=== PATIENT | female | born 1960 | race Caucasian/White ===

== ENCOUNTER 2020-08-05 09:08 | Outpatient (REF) | payer OTHER, SELFPAY ==
[2020-08-05 09:23] LABS: COVID-19 Test Negative (Negative)
== END 2020-08-05 09:09 | disposition home or self-care (01) ==
LOC: HO.EMPCOV 09:08
PROVIDERS: Visit Provider Internal Medicine
DX: Z20.822 Contact with and (suspected) exposure to COVID-19 (principal)
CPT/HCPCS: 36415; 87635; C9803

== ENCOUNTER 2021-03-05 12:19 | Outpatient (REF) | payer OTHER, SELFPAY ==
--- NOTE | ~2021-03-05 | MM_ITS ---
EXAMINATION: MM SCREENING DIGITAL BREAST TOMOSYNTHESIS, BILATERAL CLINICAL INFORMATION: Screening. Asymptomatic. The lifetime risk of breast cancer based on the Tyrer-Cuzick Model is 9%. COMPARISON: Mammography: 02/28/2020, 02/15/2019, 01/24/2018 TECHNIQUE: Digital breast tomosynthesis is performed in both the craniocaudal and mediolateral oblique views along with computer-aided detection (CAD). Synthesized 2D images are generated from the tomosynthesis. FINDINGS: The breasts are heterogeneously dense, which may obscure small masses (ACR BI-RADS breast composition Category c). There are scattered bilateral parenchymal asymmetries and shifting fibroglandular densities related to minor variation in positioning and compression. There is no developing density or interval mass or architectural abnormality. No abnormal calcifications. The axilla and skin contours are unremarkable. MM/MM tomosynthesis screening BI IMPRESSION: No significant changes from prior exams. ASSESSMENT: BI-RADS 2: Benign RECOMMENDATION: Routine annual mammography screening. This patient's information was entered into a reminder system with a target due date for their next mammogram.
== END 2021-03-05 12:20 | disposition home or self-care (01) ==
LOC: HO.MAMMO 12:19
PROVIDERS: PCP Nurse Practitioner Adult Health; Visit Provider Nurse Practitioner Adult Health
DX: Z12.31 Encounter for screening mammogram for malignant neoplasm of breast (principal)
CPT/HCPCS: 77063; 77067

== ENCOUNTER 2021-04-25 11:57 | Outpatient (REF) | payer OTHER, SELFPAY ==
--- NOTE | ~2021-04-25 | XR_ITS ---
EXAMINATION: XR RIBS, RIGHT CLINICAL INFORMATION: Trauma. COMPARISON: None TECHNIQUE: PA view the chest and 3 views of the right ribs. FINDINGS: Lungs are clear. No consolidation, pneumothorax, or pleural effusion. The cardiomediastinal silhouette and pulmonary vasculature are normal. Osseous structures are unremarkable. Ribs are intact. No fractures are identified. XR/XR ribs RT min 3V w [id number] IMPRESSION: No displaced fracture.
== END 2021-04-25 11:58 | disposition home or self-care (01) ==
LOC: HO.XRAY 11:57
PROVIDERS: PCP Nurse Practitioner Adult Health; Visit Provider Nurse Practitioner
DX: S29.9XXA Unspecified injury of thorax, initial encounter (principal); T81.31XA Disruption of external operation (surgical) wound, not elsewhere classified, initial encounter; Z98.890 Other specified postprocedural states
CPT/HCPCS: 71101

== ENCOUNTER 2022-03-30 12:10 | Outpatient (REF) | payer OTHER, SELFPAY ==
--- NOTE | ~2022-03-30 | MM_ITS ---
EXAMINATION: MM SCREENING DIGITAL BREAST TOMOSYNTHESIS, BILATERAL CLINICAL INFORMATION: Screening. Asymptomatic. The lifetime risk of breast cancer based on the Tyrer-Cuzick Model is 8%. COMPARISON: Mammography: 03/05/2021, 02/28/2020, 02/15/2019 TECHNIQUE: Digital breast tomosynthesis is performed in both the craniocaudal and mediolateral oblique views along with computer-aided detection (CAD). Synthesized 2D images are generated from the tomosynthesis. FINDINGS: There are scattered areas of fibroglandular density (ACR BI-RADS breast composition Category b). There are no significant masses, abnormal calcifications, or other abnormalities. Parenchymal pattern is similar to prior studies. There is no developing density or architectural abnormality. The axilla and skin contours are unremarkable. No significant changes. MM/MM tomosynthesis screening BI IMPRESSION: No mammographic evidence of malignancy. ASSESSMENT: BI-RADS 1: Negative RECOMMENDATION: Routine annual mammography screening. This patient's information was entered into a reminder system with a target due date for their next mammogram.
== END 2022-03-30 12:11 | disposition home or self-care (01) ==
LOC: HO.MAMMO 12:10
PROVIDERS: Visit Provider Nurse Practitioner Adult Health
DX: Z12.31 Encounter for screening mammogram for malignant neoplasm of breast (principal)
CPT/HCPCS: 77063; 77067

== ENCOUNTER 2024-12-14 07:02 | Outpatient (REF) | payer OTHER, SELFPAY ==
[2024-12-14 07:14] LABS: MANUAL DIFF FLAG NO
[2024-12-14 08:05] LABS: Basophils Percent Auto 0.4 % (0-2); Eosinophils Absolute Auto 0.1 X10*3/uL (0.0-0.4); Eosinophils Percent Auto 1.3 % (0-4); Hematocrit 39.6 % (37.0-47.0); Hemoglobin 13.1 g/dl (12.0-16.0); Imm Gran Abs Auto 0.01 X10*3/uL (0.00-0.03); Imm Gran Pct Auto 0.2 % (0.0-0.4); Lymphocytes Absolute Auto 2.3 X10*3/uL (1.2-4.9); Lymphocytes Percent Auto 44.1 % (20-40); Mean Corpuscular HGB Conc 33.1 g/dl (31.0-35.0); Mean Corpuscular Hemoglobin 31.2 pg (27.0-33.0); Mean Corpuscular Volume 94.3 fL (80.0-98.0); Monocytes Absolute Auto 0.4 X10*3/uL (0.1-1.2); Neutrophils Absolute Auto 2.5 x10*3/uL (2.0-8.3); Platelet Count 290 X10*3/uL (160-400); Red Cell Distribution Width 13.6 % (11.0-16.0); White Blood Count 5.3 X10*3/uL (4.8-10.8)
[2024-12-14 08:45] LABS: Alanine Aminotransferase 22 U/L (0-31); Albumin Level 4.3 g/dL (3.5-5.0); Alkaline Phosphatase 88 U/L (39-117); Anion Gap 8 (12-20); Aspartate Amino Transferase 26 U/L (5-31); Bilirubin Total 0.3 mg/dL (0.0-1.0); Blood Urea Nitrogen 15 mg/dL (9-16); Calcium 9.3 mg/dL (8.4-10.2); Carbon Dioxide 28 mmol/L (22-29); Chloride 110 mmol/L (96-108); Cholesterol 210 mg/dL (<200); Estimated Glomerular Filt Rate > 60; Glucose Random 108 mg/dL (60-115); HDL Cholesterol 75 mg/dL (>40); LDL Cholesterol Calculated 108 mg/dL (<100); Potassium 4.4 mmol/L (3.3-5.1); Sodium 142 mmol/L (135-145); Triglycerides 136 mg/dL (<150)
[2024-12-14 08:47] LABS: Erythrocyte Sedimentation Rate 13 MM/HR (0-20)
[2024-12-14 09:01] LABS: TSH reflex Free T4 4.86 uIU/mL (0.32-4.0)
[2024-12-14 09:50] LABS: Free T4 (Free Thyroxine) 1.03 ng/dL (0.71-1.85)
[2024-12-15 08:53] LABS: CRP High Sensitivity 3.4 mg/L
[2024-12-19 15:44] LABS: Anti Nuclear Antibody Pattern Nuclear, Homogeneous; Anti Nuclear Antibody Screen POSITIVE (NEGATIVE)
== END 2024-12-14 07:03 | disposition home or self-care (01) ==
LOC: HO.LAB 07:02
PROVIDERS: Visit Provider Nurse Practitioner
DX: E66.9 Obesity, unspecified (principal); E03.9 Hypothyroidism, unspecified; R53.83 Other fatigue; M79.10 Myalgia, unspecified site
CPT/HCPCS: 36415; 80053; 80061; 84439; 84443; 85025; 85652; 86038; 86039; 86141

== ENCOUNTER 2025-03-19 13:16 | Outpatient (AMB) | payer OTHER, SELFPAY ==
--- NOTE | 2025-03-19 13:22 | A.OFFPC_ITS ---
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 Required: No Allergies PLASTIC TAPE Allergy (Intermediate, Uncoded 03/19/25 13:44) RASH adhesive tape Allergy (Unknown, Uncoded 03/19/25 13:44) rash Medication List - Last Reconciled 03/19/25 by Kecia Hancock, SECURITY SYSTEMS INSTALLER- eletriptan 40 mg PO ONCE PRN fluconazole 200 mg PO DAILY 3 days gabapentin 2,400 mg (3 x 800 mg) PO BEDTIME ipratropium bromide 2 sprays intranasal TID-QID PRN levothyroxine 150 mcg PO DAILY 90 days melatonin 40 mg PO DAILY metoclopramide HCl 5 mg PO BID PRN mirtazapine 30 mg PO BEDTIME venlafaxine ER 150 mg PO DAILY venlafaxine ER 75 mg PO DAILY Tobacco use date assessed: 03/19/25 Dental Screening Dental Screen Date: 03/19/25 Did you have a dental visit in the last 12 months?: Yes Did you have a dental problem in the last 6 months where you did not have access to dental care?: No Was dental information given to patient?: Patient has dentist HPI HPI Comments History of Present Illness Details 64 y/o F with elevated CRP , hypothyroid , + SANTOSH, migraines, fhx of stroke (Mom), obesity. fhx colon cancer (dad) Social: , works at [employer] [facility] Family history: stroke, schizophrenia in mother, colorectal cancer, MDD, etoh and suicide in father, hypertension, and Alzheimer's in aunt. Health Maintenance: Colon has had one done, unsure when she will fu with [facility] GI Mammo 2021, ordered today DEXA ordered today PAP overdue. Tdap 2023 Specialists: None History of Present Illness - The patient is a 64-year-old female pr esenting to est care for a CPE with thyroid dysfunction, depression, and weight issues. - Thyroid dysfunction managed with levot hyroxine, previously tested with TSH at 4.86. - Depression treated with venlafaxine an d mirtazapine, with accompanying insomnia. Uses Gabapentin - Weight gain post-COVID, difficulty in weight management despite active lifestyle due to caregiving duties. - Previous use of Wegovy for wt loss cau sed low blood sugar levels & nausea. - Elevated SANTOSH, CRP and high cholesterol previously noted on labs . 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 - Struggles with maintaining weight post -COVID due to increased stress and reduced time for personal health management. - Described a reduction in activity due to caregiving and managing household responsibilities. - Meticulous about managing mother's car e post-stroke; actively involved in ensuring mother remains on appropriate medication. - Described a history of [employer] pa rticipation; current lifestyle involves high stress and multiple responsibilities. - Alcohol consumption sporadic, typicall y one glass of wine per night briefly, then periods of abstinence. Health Maintenance - Regular colonoscopy screenings advised due to family history of colorectal cancer. - Pap smear due; will refer to AVIATION ELECTRONICS TECHNICIAN. - Bone density and mammogram scheduled; advised to schedule on same day. - Discussed lifestyle modifications for weight management and recommended medication adjustments due to lifestyle. Review of Systems - General: Denies acute distress; report s stress in managing household due to caregiving responsibilities. - Musculoskeletal: Reports osteoarthriti s, particularly affecting knees. Does not have sx of polyarthralgia, offered and declined Rheum referral for SANTOSH & CRP - Neurologic: Reports depression and his tory of migraine headaches. - Endocrine: Reports thyroid dysfunction . - Psychiatric: Reports depressive sympto ms, history of insomnia, and uses gabapentin for management. Reports depression, managed with venlafaxine and mirtazapine. - Skin: Recent removal of a couple of sp ots by Dr. Rosa. Physical Exam General: Well developed, well nourished, in no acute distress. Appears stated age. Head: Normocephalic, atraumatic. Eyes: Pupils are equal, round and reactive to light and accommodation. Conjunctivae are clear. Vision grossly normal. Ears: TMs clear AU, EACS WNL Nose: Patent, without discharge. Neck: Supple, no adenopathy or thyromegaly. Breast: Edu on SBE Lungs: Clear to auscultation bilaterally. No rales, rhonchi or wheeze noted. Good air flow in all zheng. Heart: Regular rate and rhythm. No murmurs, click, rubs or gallops are noted. Abdomen: Bowel sounds present in all quadrants. The abdomen is soft, nontender, with no masses or organomegaly noted. No hernias are noted. : Deferred. Reviewed recommendations for routine FUDGER Pulses: Peripheral pulses are equal and palpable bilaterally. Extremities: No clubbing, cyanosis nor edema is noted. Some varicosities noted Neurologic: Gait and station normal. Cranial Nerves 2-12 intact. Motor strength grossly symmetrical and intact. No sensory loss. Balance normal. Skin: No rashes, ulcers, or lesions noted. Turgor is good. Skin color is good. Hair and nails are without abnormalities. Psych: Normal eye contact, affect and mood appropriate, and normal interactions. Patient is alert and appropriate to context. Results labs 12/14/24 crp 3.4, TSH 4.86, SANTOSH+ 1:160 HOMOGENOUS NUCLEAR Discussion Notes During our visit, we discussed the management of the patient's thyroid dysfunction. We considered the addition of Wellbutrin due to its potential weight loss benefits, ensuring it doesn't adversely affect her mental health. We reviewed the significance of naltrexone as an adjunct for weight management given her limited success with Wegovy due to its hypoglycemic effects. We also went over her medication regimen. The patient is advised to monitor her cholesterol levels and revisit her thyroid levels. I emphasized the importance of maintaining regular screening for colorectal cancer due to her family's history, acknowledging her proactive approach to her health maintenance. We further explored her interest in lifestyle interventions but recognized her constraints due to caregiving duties. Patient was given time to ask questions. All questions were answered to their satisfaction. Assessment and Plan 1. Thyroid dysfunction - Continue levothyroxine; retest TSH. 2. Depression/Insomnia - Maintain current medication. Maintain gabapentin use 3. Obesity - Start Wellbutrin, add naltrexone . 4. Hyperlipidemia - Monitor lipids; discuss dietary adjust ments. 7. Health Maintenance - Order mammogram, bone density, and ref er to [facility]IATION ELECTRONICS TECHNICIAN for pap smear. - Regular colonoscopy encouraged. Patient Instructions - Continue taking your medications as di scussed while monitoring for any side effects. - Expect a call to schedule your mammogr am and bone density test. - Follow up on thyroid levels with blood work soon. - Consider balanced meals to manage chol esterol?follow low-fat dietary plans. - Monitor your mood, especially when sta rting new medications. - Please ensure colonoscopy appointments remain up to date. - Exercise if possible, aiming for moder ate activity that accommodates your arthritis. - RTO 12 weeks to review wt loss from n ew meds. Consent Patient was informed and verbally consented to the use of an ambient scribe for clinic note documentation during this visit. An additional 30 minutes was spent addressing the problem(s) noted at todays visit. This includes time spent before the visit reviewing the chart, time spent during the visit, and time spent after the visit on documentation reviewing laboratory results, diagnostic imaging, medications, performing a medically necessary evaluation, counseling on diagnoses, care coordination, ordering appropriate tests, ordering appropriate medications, review of tests performed by other providers, reporting test results with the patient, communication with other healthcare providers. [facility] Medical History (Updated 03/19/25 @ 15:57 by Kecia Hancock, [facility]) Arthritis Asthma Candidal stomatitis Chronic idiopathic constipation Dental infection Depression Thyroid disorder UTI (urinary tract infection) Surgical History (Updated 03/19/25 @ 13:38 by Cher Vargas MA) H/O lumpectomy H/O myringoplasty History of appendectomy History of lumpectomy of right breast Family History (Updated 03/19/25 @ 13:39 by Cher Vargas MA) Mother Mental health disorder HTN (hypertension) Clotting disorder Father Substance abuse HTN (hypertension) Social History (Updated 03/19/25 @ 13:30 by Cher Vargas MA) Household Members: Spouse Both parents involved: No Caregiver staying overnight: No Housing: House Are you a primary urgent care nurse practitioner to a significant other at home: No Do you presently have visiting nurse or other home services: No 75 years or older and lives alone: No Alcohol intake: current Alcohol intake frequency: a few times a month Patient Tobacco Use Status: Never used Tobacco e-Cigarette/Vaping Use: Never Used Second Hand Smoke Exposure: No Current occupational status: employed 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 1. Little interest or pleasure in doing things: not at all 2. Feeling down, depressed, or hopeless: not at all 3. Trouble falling or staying asleep, or sleeping too much: nearly every day 4. Feeling tired or having little energy: more than half the days 5. Poor appetite or overeating: several days 6. Feeling bad about yourself - or that you are a failure or have let yourself or your family down: not at all 7. Trouble concentrating on things, such as reading the newspaper or watching television: not at all 8. Moving or speaking so slowly that other people could have noticed. Or the opposite - being so fidgety or restless that you have been moving around a lot more than usual: not at all 9. Thoughts that you would be better off or of hurting yourself in some way: not at all Total score: 6 Depression Screening Interpretation: Positive Depression Screening Follow-up: Existing condition and In treatment Depression Screening Done: Yes 79822 - PHQ-9 Billing: Yes Source: Developed by Drs. Jack Rosado, Bety Ziegler, Tim Dos Santos and colleagues, with an educational dori from [employer]. Thrive Questionnaire Date Thrive assessed: 03/19/25 I am a: Patient What is your living situation today?: I have a steady place to live Within the past 12 months, did the food you bought not last and you didn't have the money to get more?: Never true Within the past 12 months, did you worry whether your food would run out before you got money to buy more?: Never true Do you have trouble paying for medicines?: No Do you have trouble getting transportation to medical appointments?: No Do you have trouble paying your heating and electricity bill?: No Do you have trouble taking care of your child, family member or friend?: Yes Do you have trouble with day-to-day activities such as bathing, preparing meals, shopping, managing finances, etc.?: No Are you currently unemployed and looking for a job?: No Are you interested in more education?: Yes Please select the resources that you would like help with: None Currently or been in a relationship where the following occur: No concerns reported THRIVE Score: 0 AUDIT C Alcohol Use Questionnaire (AUDIT-C) 1. How often do you have a drink containing alcohol?: Never 2. How many drinks containing alcohol do you have on a typical day when you are drinking?: 1 or 2 3. How often do you have six or more drinks on one occasion?: Less than monthly Total Score: 1 Score Reviewed/Action Taken: Yes TRACY-7 AMB Questionnaire TRACY-7 Date TRACY - 7 assessed: 03/19/25 Feeling nervous, anxious, or on edge: 1 = Several days Not being able to stop or control worryin = Not at all Worrying too much about different things: 0 = Not at all Trouble relaxin = More than half the days Being so restless that it is hard to sit still: 0 = Not at all Becoming easily annoyed or irritable: 1 = Several days Feeling afraid as if something awful might happen: 2 = More than half the days Total TRACY-7 score (0-4 normal; 5-9 mild; 10-14 moderate; 15-21 severe): 6 Source: Developed by Drs. Jack Rosado, Bety Ziegler, Tim Dos Santos and colleagues, with an educational dori from [employer]. TRACY-7 Assessment Billing TRACY-7 Assessment Tool: TRACY-7 Assessment 51220 Physical exam (Primary Care) Vital Signs: Last Vital Signs Temp 97.6 F 03/19/25 13:30 Pulse 104 H 03/19/25 13:30 Resp 12 03/19/25 13:30 BP 122/72 03/19/25 13:30 Pulse Ox 97 03/19/25 13:30 Oxygen Delivery Method Room Air 03/19/25 13:30 BMI result Body Mass Index 38.6 BMI Assessment/Plan discussion: High BMI High, discussed plan: lifestyle Tobacco/Smoking Status: Tobacco use Status Tobacco use date assessed 03/19/25 03/19/25 13:26 Patient Tobacco Use Status Never used Tobacco 03/19/25 13:30 e-Cigarette/Vaping Use Never Used 03/19/25 13:30 PHQ-9: PHQ-9 Score PHQ-9: Total score 6 03/19/25 13:48 Depression Screening Interpretation: Positive Depression Screening Follow-up: Existing condition and In treatment Thrive Assessment: Date of Thrive Assessment Date Thrive assessed 03/19/25 03/19/25 13:39 Currently or been in a relationship where the following occur: No concerns reported Office Procedures Office Procedure Misc Details: G0449 15 MINUTE OBESITY EDUCATION 15 minutes spent Discussing different forms of medications to help with weight loss. Discouraged the use of GLP-1s due to the need to use lifelong, weight ga in after discontinuation, cost and cancer risk. Educated about the use of Wellbutrin which can be used in patients without a seizure history. This medication works by blocking out the reward center related to mindless eating. It also has a mild stimulating effect. The side effect profile includes mild anxiety as well as a slight dizzy sensation. Another medication used is metformin, this is a diabetic medication. This medication has GI side effects. But can be very beneficial in aiding with weight loss in patients without diabetes. Topiramate was also discussed. This is a seizure medication with side effect profile that includes need to monitor LFTs as well as blood counts. One of the side effects is weight loss. Another medication, Phentermine is a stimulant/controlled substance. This is an anorexient that is used short-term medication used. =. Finally the use of a medication called Contrave, which is Wellbutrin + naltrexone can be used. The brand name is usually not cover therefore would have to prescribe the 2 medications individually. This medication works just as the Wellbutrin; naltrexone aides in further blocking of the reward center to aide in wt loss. After discussion of the above, the patient wishes to proceed with Wellbutrin and Naltrexone. 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 Hypothyroidism type: due to Jadyn's thyroiditis Elevated C-reactive protein (CRP) R79.82 Menopause Z78.0 Mild episode of recurrent major depressive disorder F33.0 Major depression episode severity: mild Psychophysiological insomnia F51.04 Insomnia type: psychophysiologic Obesity (BMI 30-39.9) E66.9 Family history of colon cancer Z80.0 Family history of schizophrenia Z81.8 Family history of suicide Z81.8 Patient's father is Z84.89 CPT Codes Office Procedure - Office Procedure Billing Code: AMB Procedure Billing Code ([id number]) Additional Codes TRACY-7 Assessment Billing - TRACY-7 Assessment Tool: TRACY-7 Assessment 91188 ([id number]) PHQ-9 - 40050 - PHQ-9 Billing: Yes ([id number]) Assessment & Plan Assessment & Plan (1) Encounter for general adult medical examination without abnormal findings: Onset Date: ~03/19/25 Code(s): Z00.00 - Encounter for general adult medical examination without abnormal findings Category: Medical (2) Hypothyroid: Code(s): E03.9 - Hypothyroidism, unspecified Category: Medical Qualifiers: Hypothyroidism type: due to Jadyn's thyroiditis Qualified Code(s): E06.3 - Autoimmune thyroiditis (3) Elevated C-reactive protein (CRP): Code(s): R79.82 - Elevated C-reactive protein (CRP) Category: Medical (4) Menopause: Code(s): Z78.0 - Asymptomatic menopausal state Category: Medical (5) MDD (major depressive disorder), recurrent episode: Code(s): F33.9 - Major depressive disorder, recurrent, unspecified Category: Medical Qualifiers: Major depression episode severity: mild Qualified Code(s): F33.0 - Major depressive disorder, recurrent, mild (6) Insomnia disorder: Code(s): G47.00 - Insomnia, unspecified Category: Medical Qualifiers: Insomnia type: psychophysiologic Qualified Code(s): F51.04 - Psychophysiologic insomnia (7) Obesity (BMI 30-39.9): Code(s): E66.9 - Obesity, unspecified Category: Medical (8) Family history of colon cancer: Comment: DAD Code(s): Z80.0 - Family history of malignant neoplasm of digestive organs Category: Medical (9) Family history of schizophrenia: Comment: MOM Code(s): Z81.8 - Family history of other mental and behavioral disorders Category: Medical (10) Family history of suicide: Comment: DAD Code(s): Z81.8 - Family history of other mental and behavioral disorders Category: Medical (11) Patient's father is : Code(s): Z84.89 - Family history of other specified conditions Category: Medical Plan . Orders: Orders MM tomosynthesis screening BI Today Z12.31 - Encounter for screening mammogram for malignant neoplasm of breast XR DEXA axial skeleton Today Z13.820 - Encounter for screening for osteoporosis, Z78.0 - Asymptomatic menopausal state TSH reflex Free T4 Today E03.9 - Hypothyroidism, unspecified CRP High Sensitivity Today R79.82 - Elevated C-reactive protein (CRP) Referrals [facility]IATION ELECTRONICS TECHNICIAN Referral Z12.4 - Encounter for screening for malignant neoplasm of cervix Medications: New bupropion HCl SR (Wellbutrin SR) 150 mg PO BID 180 tabs 0RF naltrexone 25 mg (1/2 x 50 mg) PO BID 90 tabs 0RF Discontinued metoclopramide HCl Discontinued Reason: Patient Completed Course 5 mg PO BID PRN 60 tabs 3RF for nausea/vomiting fluconazole Discontinued Reason: Patient Completed Course 200 mg PO DAILY 3 days 3 tabs 0RF Patient Instructions: Walk-In Care (Urgent Care): We Make it Easy Walk-in for urgent medical issues such as: ? Seasonal Allergies ? Insect Bites ? Cough ? Diarrhea ? Acute Asthma Attacks ? Back, Knee or Joint Pain ? Ear Infection ? Fever without a Rash ? Headaches ? Nausea ? [place] [facility], Rash or Skin Irritation ? Sore Throat ? Sports Physicals ? Vomiting Most insurances are accepted. Patients do not need to be part of the [facility] to seek care at the walk-in clinic. Locations [facility] [place] , [place] [address] ? [phone] [facility] Walk-In Care in [place] provides services to ages 18 and over. Open Wednesday-Wednesday: 7 a.m. to 5 p.m. and Wednesday: 9 a.m. to 3 p.m.* *Hours may vary due to staffing availability. To confirm Walk-In Care hours in [place], please call [phone]. [address] [place] [address] ? [phone] [facility] Walk-In Care in [place] provides services to ages 12 and over. Open Wednesday-Wednesday: 8 a.m. to 5 p.m. Hours may vary due to staffing availability. To confirm Walk-In Care hours in [place], please call [phone]. LABORATORY SERVICES: [facility] Lab ? Primary Location [address] [place] [address] Wednesday through Wednesday 6:00 AM ? 5:00 PM Wednesday 7:00 AM ? 11:00 AM* [phone] The [facility] Lab is centrally located near the front entrance of the [facility] for easy outpatient access. Convenient parking is provided for outpatients. *Hours may vary due to staffing availability. To confirm Laboratory hours for any location, please call [phone]. Offsite Location For your convenience, we offer offsite laboratory draw stations at the following locations: [address] [place] [address] ? [facility] [address], [address] Wednesday through Wednesday 7:30 AM ? 1:00 PM* [phone] *Hours may vary due to staffing availability. To confirm Laboratory hours for any location, please call [phone]. [place] ? [address] Wednesday through Wednesday 6:00 AM ? 3:30 PM* Wednesday 6:30 AM ? 3 PM* [phone] *Hours may vary due to staffing availability. To confirm Laboratory hours for any location, please call [phone] [place] [address] Wednesday through Wednesday 7:30 AM ? 4:00 PM* [phone] *Hours may vary due to staffing availability. To confirm Laboratory hours for any location, please call [phone] [place] [address] Wednesday through 9:00 AM ? 4:00 PM* *Hours may vary due to staffing availability. To confirm Laboratory hours for any location, please call [phone]. Appointments are not necessary. Walk-ins are welcome. Like all the departments throughout the [facility], our Lab undergoes frequent reviews to ensure the quality and accuracy of test results, and our staff takes special pride in its status as a nationally accredited facility. Patient Portal: [facility] ONE PATIENT. ONE RECORD. BETTER CARE. [facility] has a fully integrated, cutting- edge mobile electronic health information system that has revolutionized the way we care for our patients and manage our organization. This system improves communication and coordination enabling us to provide safe, higher-quality care, and an overall positive experience for staff and patients. Our first priority, as always, is to deliver the highest quality care possible. The system is running in the background supporting that priority. This portal is for all [facility] services and practices. If you are experiencing any technical difficulties with enrolling or logging into the Patient Portal please complete the [facility] Patient Portal Technical Support Form. [facility] now offers a new secure on-line interactive tool for patients to review their health information ? ?Patient Portal. This interactive web portal will enable patients and their families to take an active role in their care by providing easy, secure access to their health information via the internet. The Patient Portal provides patients with instant access to their health information, including laboratory results, medications, allergies, demographic information, visit history, and more. In addition to managing their own care, parents and health care proxies with authorized consent will appreciate the ability to access the records of those individuals for whom they provide care. Please note: if you wish to gain access (Proxy) to another patient?s portal, you will be required to come to the Medical Records Department in person at [facility]. Both the patient giving proxy access and the proxy will need to provide photo identification and complete the appropriate authorization. The Patient Portal also allows track their appointments online. The [facility] Patient Portal also saves patients time by allowing them to submit updates to their demographic and contact information prior to their visits. Portal email notifications will also alert patients to any new activity on their portal, such as test results and new appointments. In order to initially enroll in the [facility] Patient Portal, you will need to enter some required information including the following: * your [facility] Medical Record number * your personal home email address * name * date of Please note: In order to enroll in the [facility] Patient Portal, we need to have your email address on file in your electronic medical record. ?The email address needs to be specific for one person (yourself) in order for your Portal enrollment to be successful. ?You can update your email address in person with our Registration staff when you are registering for a hospital visit. ?Otherwise, you will need to come to the Health Information Management (Medical Records) Department at [facility]. ?We are open from Wednesday ? Wednesday from 7:30 a.m. ? 4:30 p.m. ?You will be required to present a photo id. Once you have successfully enrolled in the Patient Portal, you will receive a one-time user id and password for the Portal, sent to your email address. ?This will allow you to log into the Patient Portal within 99 hrs and reset your own logon id and password, and define personal security questions. ?Once your perma nent login and password have been set, you can log into the [facility] Patient Portal at any time via the blue button above or from the Portal Logon button on any page of the [facility] website. [facility] and [facility] encourage all of our patients to enroll in Patient Portal as it presents a valuable opportunity for patients and their families to actively participate in their care and stay healthy Welcome to [facility]. ?We look forward to working with you. Health screenings for women You should visit your health care provider from time to time, even if you are healthy. The purpose of these visits is to: Screen for medical issues Assess your risk for future medical problems Encourage a healthy lifestyle Update vaccinations and other preventive care services Help you get to know your provider in case of an illness Information Even if you feel fine, you should still see your provider for regular checkups. These visits can help you avoid problems in the future. For example, the only way to find out if you have high blood pressure is to have it checked regularly. High blood sugar and high cholesterol levels also may not have any symptoms in the early stages. A simple blood test can check for these conditions. There are specific times when you should see your provider or receive specific health screenings. The [place] Preventive Services Task Force publishes a list of recommended screenings. Below are screening guidelines for women ages 18 to 39. BLOOD PRESSURE SCREENING Your blood pressure should be checked at least once every 3 to 5 years if: Your blood pressure is in the normal range (top number less than 120 mm Hg and bottom number less than 80 mm Hg) You don't have risk factors for high blood pressure Ask your provider if you need your blood pressure checked more often if: The top number is 120 to 129 mm Hg or the bottom number is 70 to 79 mm Hg You have diabetes, heart disease, kidney problems, are overweight, or have certain other health conditions You have a first-degree relative with high blood pressure You are Black You had high blood pressure during a If the top number is 130 mm Hg or greater or the bottom number is 80 mm Hg or greater, this is considered stage 1 hypertension. Schedule an appointment with your provider to learn how you can reduce your blood pressure. Watch for blood pressure screenings in your area. Ask your provider if you can stop in to have your blood pressure checked. BREAST CANCER SCREENING Experts do not agree about the benefits of breast self-exams in finding breast cancer or saving lives. Talk to your provider about what is best for you. A screening mammogram is not recommended for most women under age 40. Your provider may discuss and recommend mammograms, MRI scans, or ultrasounds if you have an increased risk for breast cancer, such as: A mother or sister who had breast cancer at a young age (most often starting screening earlier than the age the close relative was diagnosed) You carry a high-risk genetic marker CERVICAL CANCER SCREENING Cervical cancer screening should start at age 21 years unless your provider advises otherwise. After the first test: Women ages 21 through 29 should have a Pap test every 3 years. Exoprts do not agree on whether HPV testing is recommended for this age group. Women ages 30 through 65 should be screened with either a Pap test every 3 years or the HPV test every 5 years or both tests every 5 years (called cotesting ). Women who have been treated for precancer (cervical dysplasia) should continue to have Pap tests for 20 years after treatment or until age 65, whichever is longer. If you have had your uterus and cervix removed (total hysterectomy), and you have not been diagnosed with cervical cancer or precancer (high grade cervical neoplasia), you do not need cervical cancer screening. CHOLESTEROL SCREENING Cholesterol screening should begin at: Age 45 for women with no known risk factors for coronary heart disease Age 20 for women with known risk factors for coronary heart disease Repeat cholesterol screening should take place: Every 5 years for women with normal cholesterol levels More often if changes occur in lifestyle (including weight gain and diet) More often if you have diabetes, heart disease, kidney problems, or certain other conditions DIABETES SCREENING You should be screened for diabetes starting at age 35 and then repeated every 3 years if you have no risk factors for diabetes. Screening may need to start earlier and be repeated more often if you have other risk factors for diabetes, such as: You have a first degree relative with diabetes. You are overweight or have obesity. You have high blood pressure, prediabetes, or a history of heart disease. Screening for diabetes should be done if you are planning to become and you are overweight and have other risk factors such as high blood pressure. DENTAL EXAM Go to the dentist once or twice every year for an exam and cleaning. Your dentist will evaluate if you need more frequent visits. EYE EXAM Have an eye exam every 5 to 10 years before age 40. If you have vision problems, have an eye exam every 2 years or more often if recommended by your provider. You should have an eye exam that includes an examination of your retina (back of your eye) at least every year if you have diabetes. IMMUNIZATIONS Commonly needed vaccines include: Flu shot: get one every year. COVID-19 vaccine: ask your provider what is best for you. Tetanus-diphtheria and acellular pertussis (Tdap) vaccine: have one at or after age 19 as one of your tetanus-diphtheria vaccines if you did not receive it as an adolescent. Tetanus-diphtheria: have a booster (or Tdap) every 10 years. Varicella vaccine: receive 2 doses if you never had chickenpox or the varicella vaccine. Hepatitis B vaccine: receive 2, 3, or 4 doses, depending on your exact circumstances. Measles, mumps, and rubella (MMR) vaccine: receive 1 to 2 doses if you are not already immune to MMR. Your provider can tell you if you are immune. Ask your provider about the human papillomavirus (HPV) vaccine if: You have not received the HPV vaccine in the past You have not completed the full vaccine series (you should catch up on this shot) Ask your provider if you should receive other immunizations if you have certain health problems that increase your risk for some diseases such as pneumonia. INFECTIOUS DISEASE SCREENING Women who are sexually active should be screened for chlamydia and gonorrhea up until age 25. Women 25 years and older should be screened for chlamydia and gonorrhea if at high risk. Screening for hepatitis C: All adults ages 18 to 79 should get a one-time test for hepatitis C. people should be screened at every . Screening for human immunodeficiency virus (HIV): All people ages 15 to 65 should get a one-time test for HIV. Depending on your lifestyle and medical history, you may also need to be screened for infections such as syphilis and HIV, as well as other infections. PHYSICAL EXAM All adults should visit their provider from time to time, even if they are healthy. The purpose of these visits is to: Screen for disease Assess your risk of future medical problems Encourage a healthy lifestyle Update your vaccinations and other preventive care services Maintain a relationship with a provider in case of an illness Your height, weight, and BMI should be checked at every exam. During your exam, your provider may ask you about: Depression and anxiety Diet and exercise Alcohol and tobacco use Safety issues, such as using seat belts, smoke detectors, and intimate partner violence Your medicines and risk for interactions SKIN SELF-EXAM Your provider may check your skin for signs of skin cancer, especially if you're at high risk, such as if you: Have had skin cancer before Have close relatives with skin cancer Have a weakened immune system OTHER SCREENING Talk with your provider about colon cancer screening if you have a strong family history of colon cancer or polyps, or if you have had inflammatory bowel disease or polyps yourself. Routine bone density screening of women under 40 is not recommended.
[2025-03-19 13:30] VITALS: BP 122/72; PULSE 104; RESP 12; TEMP 36.4; O2SAT 97; BMI 38.6
--- OUTSIDE RECORDS SUMMARY | 2025-03-19 15:35 | XMS_ITS | Patient Health Record ---
Author Organization [facility] Address [address] [place] [id number] Care Team Providers Care Manager Facility Name Role Phone Jack Ramirez Unavailable [phone] Reason For Referral No Information Plan Of Treatment No Information
== END 2025-03-19 15:56 | disposition home or self-care (01) ==
LOC: HO.HMCFM 13:16
PROVIDERS: Visit Provider Nurse Practitioner Family
DX: Z00.00 Encounter for general adult medical examination without abnormal findings (principal); E06.3 Autoimmune thyroiditis; E66.9 Obesity, unspecified; Z68.38 Body mass index [BMI] 38.0-38.9, adult; R79.82 Elevated C-reactive protein (CRP); F33.0 Major depressive disorder, recurrent, mild; Z78.0 Asymptomatic menopausal state; F51.04 Psychophysiologic insomnia; Z80.0 Family history of malignant neoplasm of digestive organs; Z81.8 Family history of other mental and behavioral disorders; Z84.89 Family history of other specified conditions

== ENCOUNTER → 2025-03-19 13:16 | Outpatient (BNVA) | payer OTHER, SELFPAY | PROVIDERS: Visit Provider Nurse Practitioner Family | DX: Z00.00 Encounter for general adult medical examination without abnormal findings (principal); E03.9 Hypothyroidism, unspecified; G47.00 Insomnia, unspecified; E66.9 Obesity, unspecified; E78.5 Hyperlipidemia, unspecified; Z71.89 Other specified counseling; E06.3 Autoimmune thyroiditis; R79.82 Elevated C-reactive protein (CRP); F33.0 Major depressive disorder, recurrent, mild; F51.04 Psychophysiologic insomnia; Z80.0 Family history of malignant neoplasm of digestive organs; Z81.8 Family history of other mental and behavioral disorders; Z78.0 Asymptomatic menopausal state; Z79.899 Other long term (current) drug therapy | CPT/HCPCS: 96127 ==

== ENCOUNTER 2025-04-02 13:33 | Outpatient (AMB) | payer OTHER, SELFPAY ==
--- NOTE | 2025-04-02 13:43 | AM.OFFWIN_ITS ---
Intake Intake Visit Reasons: flu shot Patient Tobacco Use Status: Never used Tobacco Allergies PLASTIC TAPE Allergy (Intermediate, Uncoded 03/19/25 13:44) RASH adhesive tape Allergy (Unknown, Uncoded 03/19/25 13:44) rash PFSH Medical History (Updated 04/02/25 @ 14:24 by JOSE DANIEL Solano) Arthritis Asthma Candidal stomatitis Chronic idiopathic constipation Dental infection Depression Thyroid disorder UTI (urinary tract infection) Surgical History (Updated 03/20/25 @ 10:33 by JOSE DANIEL Solano) H/O lumpectomy H/O myringoplasty History of appendectomy History of colonoscopy (~2019) History of lumpectomy of right breast Family History (Updated 03/19/25 @ 13:39 by Cher Vargas MA) Mother Mental health disorder HTN (hypertension) Clotting disorder Father Substance abuse HTN (hypertension) Social History (Updated 03/19/25 @ 13:30 by Cher Vargas MA) Household Members: Spouse Both parents involved: No Caregiver staying overnight: No Housing: House Are you a primary acute care nursing assistant to a significant other at home: No Do you presently have visiting nurse or other home services: No 75 years or older and lives alone: No Alcohol intake: current Alcohol intake frequency: a few times a month Patient Tobacco Use Status: Never used Tobacco e-Cigarette/Vaping Use: Never Used Second Hand Smoke Exposure: No Current occupational status: employed 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 Cognitive needs: No Hearing needs: Yes (left ear hard of hearing) Vision needs: Yes (glasses) Office Procedures Flu Questionnaire Does the patient have a severe egg allergy?: No Does the patient have severe life threatening allergies?: No Does the patient have a fever or illness today?: No Has the patient ever had Guillain-[place] Syndrome?: No Has the patient ever had any past reaction to a flu shot?: No Immunizations Fluarix [id number] (PF) 45 mcg (15 mcg x 3)/0.5 mL IM syringe Performing Provider: JOSE DANIEL Solano [place] [facility] [place] [facility] Administered by: Marquise Venegas RN on 04/02/25 13:43 Dose Route Admin Location Dispensed Lot Number Expiration Date [facility] Order Editor 0.5 mL IM Left Deltoid 0.5 mL [id number] 01/08/26 [id number] [employer] VIS Given Date VIS Provided VIS Publication Date 04/02/25 Single Vaccine 24 Eligibility Eligibility Date Funding Source Not [facility] Eligible 04/02/25 Private Assessment & Plan Assessment & Plan (1) Influenza vaccination administered at current visit: Onset Date: ~04/02/25 Code(s): Z23 - Encounter for immunization Plan . Orders: Orders Influenza [id number] Immunization Today Z23 - Encounter for immunization Coding Level of Care Code Procedure Only Diagnoses Influenza vaccination administered at current visit Z23
== END 2025-04-02 13:46 | disposition home or self-care (01) ==
LOC: HO.HMCFM 13:33
PROVIDERS: PCP Nurse Practitioner Family; Visit Provider Nurse Practitioner Family
DX: Z23 Encounter for immunization (principal)

== ENCOUNTER → 2025-04-02 13:33 | Outpatient (BNVA) | payer OTHER, SELFPAY | PROVIDERS: PCP Nurse Practitioner Family; Visit Provider Nurse Practitioner Family | DX: Z23 Encounter for immunization (principal) | CPT/HCPCS: 90471; 90656 ==

== ENCOUNTER 2025-06-18 15:12 | Outpatient (AMB) | payer OTHER, SELFPAY ==
--- NOTE | 2025-06-18 14:40 | MHC.PC.OV ---
Vital Signs 06/18/25 16:17 06/18/25 16:17 Height 5 ft 1 in Weight 198 lb Intake Visit Reasons: fu Med start Intake Note: Telehealth follow up on med. Shirt Hemmer Required: No Allergies PLASTIC TAPE Allergy (Intermediate, Uncoded 06/18/25 16:17) RASH adhesive tape Allergy (Unknown, Uncoded 06/18/25 16:17) rash Medication List - Last Reviewed 06/18/25 by Cher Vargas MA bupropion HCl SR (Wellbutrin SR) 150 mg PO BID eletriptan 40 mg PO ONCE PRN gabapentin 1,600 mg (2 x 800 mg) PO BEDTIME ipratropium bromide 2 sprays intranasal TID-QID PRN levothyroxine 150 mcg PO DAILY 90 days melatonin 40 mg PO DAILY mirtazapine 30 mg PO BEDTIME naltrexone 25 mg (1/2 x 50 mg) PO BID sodium,potassium,mag sulfates 17.5-3.13-1.6 gram (Suprep Bowel Prep Kit) 480 mL orally; FOR COLONOSCOPY PREP venlafaxine ER 150 mg PO DAILY venlafaxine ER 75 mg PO DAILY Tobacco use date assessed: 06/18/25 Dental Screening Dental Screen Date: 06/18/25 Did you have a dental visit in the last 12 months?: Yes Did you have a dental problem in the last 6 months where you did not have access to dental care?: No Was dental information given to patient?: Patient has dentist HPI HPI Comments History of Present Illness Details 64 y/o F with elevated CRP , hypothyroid, + SANTOSH, migraines, fhx of stroke (Mom), obesity. fhx colon cancer (dad) Social: , works at [employer] [facility] Family history: stroke, schizophrenia in mother, colorectal cancer, MDD, etoh and suicide in father, hypertension, and Alzheimer's in aunt. Health Maintenance: Colon has had one done, unsure when she will fu with [facility] GI Mammo 2021, ordered today DEXA ordered today PAP overdue. Tdap 2023 Specialists: None History of Present Illness The patient is a 64 year old female presenting for a follow-up on weight management with Wellbutrin and naltrexone, via televideo Weight Management: - The patient started Wellbutrin and naltrexone for weight management at the end of March. - She reports a weight loss of about 5 pounds, with her current weight being approximately 198 lbs, down from 204.8 lbs. - She has experienced decreased appetite since starting the medication. - She reports somnolence as a side effect of naltrexone, which occurs about eight hours after she takes it. - Due to this side effect, her adherence to naltrexone has been inconsistent, as she intends to take it mid-day but often forgets. - She denies any constipation or gastrointestinal upset from the medications. - She notes the medication has not affected her mood either positively or negatively. - She has pending blood work that has not yet been completed. Review of Systems - Constitutional: Reports somnolence secondary to naltrexone. - Gastrointestinal: Reports decreased appetite. Denies constipation or stomach upset. - Psychiatric: Reports no change in mood. Physical Exam - Vitals: Weight is 198 lbs. - Limited video exam, smiling, engaging Results - No diagnostic results were discussed during this encounter. Assessment and Plan 1. Weight Management - The patient is responding to the combination of bupropion and naltrexone with a weight loss of approximately 5 pounds since late March, despite inconsistent adherence to naltrexone due to somnolence. - She will continue the current regimen and attempt to improve adherence by taking the naltrexone in the middle of the day to align the side effect with her bedtime. - Refills for both bupropion and naltrexone will be sent to [facility] pharmacy. 2. Health Maintenance - The patient has outstanding orders for blood work and is advised to complete it when she is able. - A follow-up televisit is scheduled in approximately 3 months, on September 17 at 4:00 PM, to reassess her progress. Patient was given time to ask questions. All questions were answered to their satisfaction. Telehealth Attestation This visit was conducted via video. The patient has been explained that this is an interactive (audio/video) telehealth encounter and what that consists of. The patient understands and wishes to proceed. [employer] platform was used. Total time spent caring for the patient today was 15 minutes. This includes time spent before the visit reviewing the chart, time spent during the visit, and time spent after the visit on documentation, reviewing laboratory results, diagnostic imaging, medications, performing a medically necessary evaluation, counseling on diagnoses, care coordination, ordering appropriate tests, ordering appropriate medications, review of tests performed by other providers, reporting test results with the patient, communication with other healthcare providers. [facility] Medical History (Updated 04/02/25 @ 14:24 by Kecia Hancock [facility]) Arthritis Asthma Candidal stomatitis Chronic idiopathic constipation Dental infection Depression Thyroid disorder UTI (urinary tract infection) Surgical History (Updated 03/20/25 @ 10:[facility] H/O lumpectomy H/O myringoplasty History of appendectomy History of colonoscopy (~2019) History of lumpectomy of right breast Family History (Updated 03/19/25 @ 13:39 by Cher Vargas MA) Mother Mental health disorder HTN (hypertension) Clotting disorder Father Substance abuse HTN (hypertension) Social History (Updated 03/19/25 @ 13:30 by Cher Vargas MA) Household Members: Spouse Both parents involved: No Caregiver staying overnight: No Housing: House Are you a primary senior care provider to a significant other at home: No Do you presently have visiting nurse or other home services: No 75 years or older and lives alone: No Alcohol intake: current Alcohol intake frequency: a few times a month Patient Tobacco Use Status: Never used Tobacco e-Cigarette/Vaping Use: Never Used Second Hand Smoke Exposure: No Current occupational status: employed 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 How many drinks containing alcohol do you have on a typical day when you are drinking?: 1 or 2 3. How often do you have six or more drinks on one occasion?: Less than monthly Total Score: 1 TRACY-7 AMB Questionnaire TRACY-7 Date TRACY - 7 assessed: 03/19/25 Source: Developed by Drs. Jack Rosado, Bety Ziegler, Tim Dos Santos and colleagues, with an educational dori from [employer] Physical exam (Primary Care) Tobacco/Smoking Status: Tobacco use Status Tobacco use date assessed 03/19/25 06/18/25 14:40 Patient Tobacco Use Status Never used Tobacco 06/18/25 14:40 e-Cigarette/Vaping Use Never Used 06/18/25 14:40 Thrive Assessment: Date of Thrive Assessment Date Thrive assessed 03/19/25 06/18/25 14:40 Telehealth Telehealth Telehealth Platform: [employer] Location of provider rendering services: practice address Location of patient: address on file Patient Identification confirmed using: Name, : Yes Telehealth method: video Patient verbally consented to treatment: Yes Patient verbally consented to billing insurance company: Yes Patient informed of any privacy concerns related to visit: Yes Minutes spent on Phone/Video with Pt.: 8 Coding Level of Care Code Tele Est Pt Level 2 (01514) Complex visit Add On G2211 Diagnoses Obesity (BMI 30-39.9) E66.9 Assessment & Plan Assessment & Plan (1) Obesity (BMI 30-39.9): Code(s): E66.9 - Obesity, unspecified Category: Medical Plan . Medications: Refilled naltrexone 25 mg (1/2 x 50 mg) PO BID 90 tabs 0RF bupropion HCl SR (Wellbutrin SR) 150 mg PO BID 180 tabs 0RF Discontinued amoxicillin-pot clavulanate 875-125 mg Discontinued Reason: Patient Completed Course 1 tab PO BID 14 days 28 tabs 0RF
== END 2025-06-18 16:24 | disposition home or self-care (01) ==
LOC: HO.HMCFM 15:12
PROVIDERS: PCP Nurse Practitioner Family; Visit Provider Nurse Practitioner Family
DX: E66.9 Obesity, unspecified (principal); Z68.38 Body mass index [BMI] 38.0-38.9, adult